=== PATIENT | female | born 1950 | race Caucasian/White ===

== ENCOUNTER 2020-12-18 09:49 | Outpatient (CLI) | payer MEDICARE, OTHER | END 2020-12-18 09:50 | disposition home or self-care (01) | LOC: BICMAMMO 09:49 | PROVIDERS: ATTEND Family Medicine | DX: Z12.31 Encounter for screening mammogram for malignant neoplasm of breast (principal) | CPT/HCPCS: 77063; 77067 ==

== ENCOUNTER 2022-03-25 16:27 | Outpatient (CLI) | payer MEDICARE, OTHER | END 2022-03-25 16:28 | disposition home or self-care (01) | LOC: SCSRAD 16:27 | PROVIDERS: ATTEND Family Medicine | DX: M25.562 Pain in left knee (principal); W19.XXXA Unspecified fall, initial encounter ==

== ENCOUNTER 2022-12-11 09:49 | Outpatient (CLI) | payer MEDICARE, OTHER | END 2022-12-11 09:50 | disposition home or self-care (01) | LOC: BICRAD 09:49 | PROVIDERS: ATTEND Family Medicine | DX: M54.6 Pain in thoracic spine (principal); M25.78 Osteophyte, vertebrae; M45.4 Ankylosing spondylitis of thoracic region; M41.84 Other forms of scoliosis, thoracic region; R29.890 Loss of height; M48.54XA Collapsed vertebra, not elsewhere classified, thoracic region, initial encounter for fracture | CPT/HCPCS: 72072 ==

== ENCOUNTER 2023-05-13 08:43 | Outpatient (CLI) | payer MEDICARE, OTHER | END 2023-05-13 08:44 | disposition home or self-care (01) | LOC: BICRAD 08:43 | PROVIDERS: ATTEND Family Medicine | DX: M25.511 Pain in right shoulder (principal); M47.22 Other spondylosis with radiculopathy, cervical region; M19.011 Primary osteoarthritis, right shoulder | CPT/HCPCS: 72052 ==

== ENCOUNTER 2023-06-03 12:46 | Outpatient (CLI) | payer MEDICARE, OTHER | END 2023-06-03 12:47 | disposition home or self-care (01) | LOC: BICMRI 12:46 | PROVIDERS: ATTEND Family Medicine | DX: M50.10 Cervical disc disorder with radiculopathy, unspecified cervical region (principal); M48.02 Spinal stenosis, cervical region; M89.38 Hypertrophy of bone, other site; M25.78 Osteophyte, vertebrae | CPT/HCPCS: 72141 ==

== ENCOUNTER 2024-06-09 14:01 | Outpatient (CLI) | payer MEDICARE, OTHER | END 2024-06-09 14:02 | disposition home or self-care (01) | LOC: BICMAMMO 14:01 | PROVIDERS: ATTEND Family Medicine | DX: Z12.31 Encounter for screening mammogram for malignant neoplasm of breast (principal) | CPT/HCPCS: 77063; 77067 ==

== ENCOUNTER 2024-10-11 11:07 | Outpatient (CLI) | payer MEDICARE, OTHER | END 2024-10-11 11:08 | disposition home or self-care (01) | LOC: SCSRAD 11:07 | PROVIDERS: ATTEND Family Medicine | DX: M79.632 Pain in left forearm (principal) ==

== ENCOUNTER 2024-12-07 17:09 | Emergency (ER) | payer MEDICARE, OTHER ==
[~2024-12-07 17:09] MED LIST: Iopamidol-370 76% 500 ML MDV (1 ML CHARGE) ONE
[2024-12-07] MEDS ORDERED: Morphine 4 MG/ML VIAL ONE (17:48)
[2024-12-07] MEDS ORDERED: Ondansetron PF 4 MG/2 ML Vial ONE (17:48)
[2024-12-07 18:07] LABS: #Basophils 0.04 10x3/uL (0.0-0.2); %Basophils 0.4 % (0.0-1.0); %Eosinophils 0.6 % (0.0-10.0); %Lymphocytes 16.7 % (21.0-51.0); %Monocytes 7.1 % (0.0-10.0); %Neutrophils 74.8 % (42.0-75.0); Hematocrit 42.9 % (36.0-47.0); Hemoglobin 14.6 g/dL (12.0-16.0); Mean Corpuscular Hemoglobin 28.2 pg (27.0-31.0); Mean Corpuscular Volume 82.8 fL (78.0-98.0); Mean Platelet Volume 9.5 fL (7.4-10.4); Platelet Count 217 10x3/uL (130-400); RBC Distribution Width 12.6 % (11.5-14.5); Red Blood Cell (RBC) Count 5.18 mill/uL (4.20-5.40)
[2024-12-07 18:26] LABS: ALT (SGPT) 32 U/L (8-55); AST (SGOT) 34 U/L (5-34); Albumin 3.8 g/dL (3.4-4.8); Alkaline Phosphatase 107 U/L (40-110); Anion Gap 13 mmol/L (10-20); BUN (Urea Nitrogen) 12 mg/dL (9.8-20.1); Bilirubin, Total 0.6 mg/dL (0.2-1.2); Calc. Creatinine Clearance 0 mL/min (70-130); Calcium 9.6 mg/dL (7.8-10.44); Carbon Dioxide 25 mmol/L (23-31); Chloride 103 mmol/L (98-107); Estimated GFR 68; Globulin 3.9 g/dL (2.4-3.5); Glucose 107 mg/dL (83-110); Lipase 8 U/L (8-78); Protein, Total 7.7 g/dL (5.8-8.1); Sodium 137 mmol/L (136-145)
[2024-12-07 19:52] LABS: Bilirubin Negative (Negative); Blood, Urine Negative (Negative); CAUTI Indications for Culture Alt mental st,lethar; Clarity Clear (Clear); Glucose, Urine (Dipstick) Normal (Negative); Ketone, Urine Negative (Negative); Leukocyte Negative Leu/uL (Negative); Nitrite Negative (Negative); Protein, Urine (Dipstick) Negative (Neg-Trace); RBC/HPF 0-3 HPF (0-3); Specific Gravity, Urine 1.024 (1.002-1.036); Squamous Epithelial None Seen HPF (0-3); Urobilinogen Normal mg/dL (Less than 2)
[2024-12-07 19:53] LABS: Bacteria/HPF Rare-Few HPF (None Seen)
[2024-12-07 19:54] LABS: Urine Culture Reflex No No
== END 2024-12-07 20:25 | disposition home or self-care (01) ==
LOC: ERS 17:09
DX: R10.9 Unspecified abdominal pain (principal); R11.0 Nausea; R19.7 Diarrhea, unspecified; E11.9 Type 2 diabetes mellitus without complications; I10 Essential (primary) hypertension
CPT/HCPCS: 74177; 80053; 81001; 83690; 85025; J2270; J2405; 36415; 96361; 96374; 96375; Q9967

== ENCOUNTER 2024-12-22 12:34 | Emergency (ER) | payer MEDICARE, OTHER ==
[2024-12-22] MEDS ORDERED: Iopamidol-370 76% 500 ML MDV (1 ML CHARGE) ONE (13:59)
[2024-12-22 14:03] LABS: #Basophils 0.03 10x3/uL (0.0-0.2); %Basophils 0.3 % (0.0-1.0); %Eosinophils 0.5 % (0.0-10.0); %Lymphocytes 16.3 % (21.0-51.0); %Monocytes 5.9 % (0.0-10.0); %Neutrophils 76.7 % (42.0-75.0); Hematocrit 44.3 % (36.0-47.0); Hemoglobin 14.9 g/dL (12.0-16.0); Mean Corpuscular HGB CONC 33.6 g/dL (32.0-36.0); Mean Corpuscular Hemoglobin 28.2 pg (27.0-31.0); Mean Corpuscular Volume 83.9 fL (78.0-98.0); Mean Platelet Volume 9.7 fL (7.4-10.4); Platelet Count 235 10x3/uL (130-400); RBC Distribution Width 12.7 % (11.5-14.5); Red Blood Cell (RBC) Count 5.28 mill/uL (4.20-5.40)
[2024-12-22 14:23] LABS: ALT (SGPT) 20 U/L (Less than 34); AST (SGOT) 27 U/L (11-34); Albumin 3.8 g/dL (3.1-4.5); Alkaline Phosphatase 102 U/L (40-110); Anion Gap 13 mmol/L (10-20); BUN (Urea Nitrogen) 9 mg/dL (9.8-20.1); Bilirubin, Total 0.5 mg/dL (0.3-1.2); Calc. Creatinine Clearance 0 mL/min (70-130); Calcium 9.9 mg/dL (7.8-10.44); Carbon Dioxide 24 mmol/L (23-31); Chloride 107 mmol/L (98-107); Estimated GFR 66; Globulin 3.8 g/dL (2.4-3.5); Glucose 119 mg/dL (83-110); Lipase 9 U/L (8-78); Potassium 4.4 mmol/L (3.5-5.1); Protein, Total 7.6 g/dL (5.8-8.1); Sodium 140 mmol/L (136-145)
[2024-12-22] MEDS ORDERED: Morphine 4 MG/ML VIAL ONE (19:09)
[2024-12-22] MEDS ORDERED: Pantoprazole 40 MG VIAL ONE (19:09)
[2024-12-22] MEDS ORDERED: Ondansetron ODT 4 MG TAB ONE (19:09)
[2024-12-22 20:11] LABS: Bacteria/HPF 4+ HPF (None Seen); Bilirubin Negative (Negative); Blood, Urine Negative (Negative); CAUTI Indications for Culture Pelvic or flank pain; Glucose, Urine (Dipstick) Normal (Negative); Ketone, Urine Trace mg/dL (Negative); Leukocyte Negative Leu/uL (Negative); Nitrite 2+ (Negative); Protein, Urine (Dipstick) 20 mg/dL (Neg-Trace); RBC/HPF None Seen HPF (0-3); Specific Gravity, Urine 1.021 (1.002-1.036); Urobilinogen Normal mg/dL (Less than 2); pH, Urine 5.5 (5.0-9.0)
[2024-12-22 20:16] LABS: Clarity Hazy (Clear)
[2024-12-22 20:17] LABS: Urine Culture Reflex No No
[2024-12-22 20:57] LABS: Troponin I Less than 0.010 ng/mL (< 0.028)
== END 2024-12-22 22:28 | disposition home or self-care (01) ==
LOC: ERS 12:34
DX: R10.84 Generalized abdominal pain (principal); I10 Essential (primary) hypertension; E11.9 Type 2 diabetes mellitus without complications; E78.5 Hyperlipidemia, unspecified; Z55.6 Problems related to health literacy
CPT/HCPCS: 74177; 80053; 81001; 83690; 84484; 85025; 93005; J2270; J2470; Q0162; 36415; 96374; 96375; Q9967